=== PATIENT | female | born 1985 | race Caucasian/White ===

== ENCOUNTER 2022-12-17 11:02 | Emergency (ER) | payer MEDICAID, SELFPAY ==
[2022-12-17 11:06] VITALS: BP 124/78; PULSE 83; RESP 18; TEMP 36.9; O2SAT 98; BMI 18.8
--- NOTE | 2022-12-17 11:09 | ED_ITS ---
HPI - General Adult General: Chief complaint: Wound/Laceration Stated complaint: WOUND ON LEG Time Seen by Provider: 12/17/22 11:04 Source: patient Mode of arrival: ambulatory History of Present Illness: 37-year-old female presents emergency room with a chronic wound in the right popliteal fossa. It is bandaged. Bandage removed there is an open wound about a centimeter in width and a half a centimeter deep appears to have been an abscess at 1 point there is no active drainage. She not had any fever sweats or chills Onset (ago): week(s) Location: lower extremity Severity: mild Quality: aching Relieving factors: none Exacerbating factors: none Associated symptoms: Deny dyspnea or fevers/chills Review of Systems Const: Denies: fever(s) or chills Resp: Denies: dyspnea Physical Exam Const: COMMON NORMALS: no acute distress GENERAL APPEARANCE: cooperative and comfortable ORIENTATION/CONSCIOUSNESS: Yes awake, Yes oriented to person, Yes oriented to place and Yes oriented to time HENMT: COMMON NORMALS: normocephalic, atraumatic and hearing grossly normal bilaterally HEAD & SCALP: normocephalic and atraumatic Resp: COMMON NORMALS: normal respiratory effort, No retractions, No use of accessory muscles and clear to auscultation bilaterally AUSCULTATION: clear to auscultation bilaterally Cardio: COMMON NORMALS: regular rate, regular rhythm and No murmurs present (Cardio) RATE: regular rate RHYTHM: regular rhythm GI: COMMON NORMALS: Soft to palpation and No hepatosplenomegaly present AUSCULTATION: Yes normoactive bowel sounds PALPATION: Yes Soft to palpation, No Tenderness to palpation present (GI), No Guarding due to palpation present (GI) and Yes No hepatosplenomegaly present Extremity: COMMON NORMALS: normal to inspection, capillary refill normal, no clubbing, cyanosis or edema, no calf tenderness and no pedal edema Neuro: SENSORIUM/ORIENTATION: Yes oriented to person, Yes oriented to place and Yes oriented to time Skin: OTHER: Defect lateral polyp popliteal fossa. No active drainage no induration in the area that there is some slightly thickened skin that appears to be resolving cellulitis. Wound is approximately half inch deep. No palpable abscess. Course Vital Signs: Vital signs: Vital Signs Temperature 98.4 F 12/17/22 11:06 Pulse Rate 83 12/17/22 11:06 Respiratory Rate 18 12/17/22 11:06 Blood Pressure 124/78 12/17/22 11:06 Pulse Oximetry 98 12/17/22 11:06 Oxygen Delivery Me thod Room Air 12/17/22 11:06 MDM - General Adult Medical Decision Making Start Bactrim DS 1 p.o. twice daily apply topical antibiotic ointment until clear follow-up as needed. Can follow-up with primary care if worsens or changes skin have primary care refer to wound clinic if felt appropriate Medical Records I reviewed the patient's medical records. No radiology studies performed this visit Discharge Plan Discharge Patient Disposition: Home Clinical Impression: Wound, open Condition: Stable Prescriptions: New Bactrim DS 800-160 mg tablet 1 tab PO BID 10 Days Qty: 20 0RF mupirocin 2 % ointment 1 applic topical DAILY Qty: 50 0RF Discharge Orders: Discharge ED (Routine); Ordered 12/17/22 Ordered By: Bear Samaniego Discharge Diet: Usual diet Discharge Activity: Increase activity as tolerated Patient Instructions: Opioid Safety, Pain Management Activity Restrictions/Additional Instructions: Thank you for choosing [facility] for your healthcare needs today. Please realize this is an emergency room and that we are providing you with a medical screening exam and this may not be complete and all inclusive of all the testing and or work up that you may need to determine your ailment or severity of your illness. It is very important that you follow up as instructed or that you return to the Emergency Department should you have concerns or if your condition changes or worsens in any way. You were seen today for an open wound behind the right knee. It is not actively draining there is no adjacent abscess. Recommend applying topical antibiotic ointment with a Q-tip twice daily keep the wound covered with a bandage. You should also start Bactrim DS 1 p.o. twice daily for 10 days. Follow-up with your primary care doctor in the next week. Continue topical antibiotic ointment and bandage until wound is completely healed. If does not begin to heal your primary care doctor can refer you to wound care clinic Coding Level of Care Code ED [employer] for [facility] Rojas
== END 2022-12-17 11:25 | disposition home or self-care (01) ==
LOC: ER 11:27
PROVIDERS: Emergency Provider Family Medicine
DX: S81.001A Unspecified open wound, right knee, initial encounter (principal); X58.XXXA Exposure to other specified factors, initial encounter
CPT/HCPCS: 99283